=== PATIENT | female | born 2000 | race Caucasian/White ===

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

== ENCOUNTER 2023-11-07 10:58 | Emergency (ER) | payer OTHER ==
[~2023-11-07] VITALS: Ht 165.1 cm; Wt 81.7 kg
[~2023-11-07 10:58] MED LIST changes: +CYMBALTA30 M2 PO
[2023-11-07 11:42] LABS: BASOPHILS ABSOLUTE AUTO 0.02 K/mm3 (0.00-0.23); BASOPHILS PERCENT AUTO 0 % (0-2); EOSINOPHILS ABSOLUTE AUTO 0.17 K/mm3 (0.00-0.68); EOSINOPHILS PERCENT AUTO 2 % (0-6); Hematocrit 41.5 % (33.0-51.0); Hemoglobin 14.1 g/dL (11.5-16.0); IMMATURE GRAN ABSOLUTE AUTO 0.05 K/mm3 (0.00-0.10); IMMATURE GRAN PERCENT AUTO 1 % (0-1); LYMPHOCYTES ABSOLUTE AUTO 1.59 K/mm3 (0.84-5.20); LYMPHOCYTES PERCENT AUTO 19 % (21-46); MONOCYTES ABSOLUTE AUTO 0.49 K/mm3 (0.16-1.47); MONOCYTES PERCENT AUTO 6 % (4-13); Mean Corpuscular HGB 31.5 pg (26.0-34.0); Mean Corpuscular Volume 93 fL (80-100); Mean Platelet Volume 9.5 fL (9.1-12.4); NEUTROPHILS PERCENT AUTO 72 % (41-73); Platelet Count 286 K/mm3 (150-400); RDW Coefficient Variation 13.2 % (11.7-14.2); RDW Standard Deviation 45.3 fL (35.1-46.3); Red Blood Cell Count 4.47 M/mm3 (3.80-5.20); White Blood Cell Count 8.32 K/mm3 (4.00-11.30)
[2023-11-07 12:05] LABS: Albumin, Blood 3.7 g/dL (3.4-5.0); Albumin/Globulin Ratio 1.1 (0.8-1.8); Bilirubin, Total 0.5 mg/dL (0.1-1.0); Bun/Creatinine Ratio 17.5 (12.0-20.0); Calcium, Blood 8.5 mg/dL (8.5-10.1); Creatinine, Blood 0.52 mg/dL (0.40-1.00); Globulin, Blood 3.3 g/dL (2.2-4.0); Potassium, Blood 4.2 mmol/L (3.5-5.5)
[2023-11-07] MEDS ORDERED: levETIRAcetam 4,500 MG in NS 55 ML IV ONE (12:55)
[2023-11-07] MEDS ORDERED: NS 1,000 ML IV ONE (13:29)
[2023-11-07 13:46] LABS: Source, Urine Clean Catch
[2023-11-07 14:20] LABS: Bilirubin, Urine Neg (Neg); Blood, Urine 3+ (Neg); Glucose Qualitative, Urine Neg (Neg); Ketones, Urine Neg (Neg); Leukocyte Esterase, Urine Neg (Neg); Nitrite, Urine Pos (Neg); Protein, Urine Neg (Neg); Urobilinogen, Urine NORM (Normal)
[2023-11-07 14:32] LABS: U Amphetamine Screen Not Detected; U Barbituate Screen Not Detected; U Benzodiazapine Screen Not Detected; U Cocaine Screen Not Detected; U Methadone Screen Not Detected; U Methamphetamine Screen Not Detected; U Opiates Screen Not Detected; U Phencyclidine Screen Not Detected
[2023-11-07 14:33] LABS: U Buprenorphine Screen Not Detected; U Cannabinoids Screen DETECTED; U Oxycodone Screen Not Detected
[2023-11-07 14:37] LABS: Appearance, Urine Hazy (Clear); Bacteria Many /hpf; Color, Urine Pale Yellow (P-Yellow); Squamous Epithelial Cells Rare /hpf (Few); White Blood Cells, Urine 0-2 /hpf (0-5)
[2023-11-07 14:53] VITALS: BP 119/72
[2023-11-07] MEDS ORDERED: LEVE500 PO (15:32)
[2023-11-07] MEDS ORDERED: NITR100CA PO (19:29)
== END 2023-11-07 15:41 | disposition home or self-care (01) ==
LOC: ER 10:58
PROVIDERS: Student in an Organized Health Care Education/Training Program
DX: R56.9 Unspecified convulsions (principal); N39.0 Urinary tract infection, site not specified; F17.200 Nicotine dependence, unspecified, uncomplicated
CPT/HCPCS: 80053; 81001; 84703; 85025; 96365; 99284-25; J1953; J7030

== ENCOUNTER 2023-11-20 09:44 | Emergency (ER) | payer OTHER ==
[~2023-11-20] VITALS: Ht 165.1 cm; Wt 81.7 kg
[~2023-11-20 09:44] MED LIST changes: +LEVE500 PO; +NITR100CA PO
[2023-11-20] MEDS ORDERED: Ketorolac Tromethamine 30mg Vial IV ONE (10:05)
[2023-11-20] MEDS ORDERED: FentaNYL Citrate 50 MCG/ML 2 ML Injection IV ONE (10:05)
[2023-11-20] MEDS ORDERED: Ondansetron HCl 2 MG / ML 2ML Vial IV ONE (10:05)
[2023-11-20] MEDS ORDERED: Valproic Acid Syrup 250MG / 5ML 1 ML PO ONE (10:40)
[2023-11-20] MEDS ORDERED: Valproic Acid 250 MG Cap PO ONE (10:50)
[2023-11-20 11:04] LABS: Valproic Acid 82.3 ug/mL (50.0-100.0)
[2023-11-20 12:35] VITALS: BP 109/49
[2023-11-20] MEDS ORDERED: DIVA250EC PO (12:37)
== END 2023-11-20 13:11 | disposition home or self-care (01) ==
LOC: ER 09:44
PROVIDERS: Emergency Medicine
DX: G40.909 Epilepsy, unspecified, not intractable, without status epilepticus (principal)
CPT/HCPCS: 80164; 82947; 96374; 96375; 99284-25; A9270; J1885; J2405; J3010

== ENCOUNTER → 2023-11-28 | Outpatient (CLI) | payer OTHER ==
[~2023-11-28] MED LIST changes: +DIVA250EC PO
== END | disposition home or self-care (01) ==
LOC: LAB 17:51 → LAB SHORT 17:51
DX: R30.0 Dysuria (principal)
CPT/HCPCS: 87086

== ENCOUNTER 2024-03-27 13:06 | Inpatient (IN) | payer OTHER ==
[~2024-03-27] VITALS: Ht 162.6 cm; Wt 77.7 kg
[2024-03-27] MEDS ORDERED: Ondansetron HCl 2 MG / ML 2ML Vial IV ONE (14:20)
[2024-03-27 15:04] LABS: Hematocrit 50.3 % (33.0-51.0); Hemoglobin 16.9 g/dL (11.5-16.0); Mean Corpuscular HGB 32.9 pg (26.0-34.0); Mean Corpuscular HGB Conc 33.6 g/dL (31.5-36.5); Mean Corpuscular Volume 98 fL (80-100); Mean Platelet Volume 10.5 fL (9.1-12.4); Platelet Count 377 K/mm3 (150-400); RDW Coefficient Variation 13.4 % (11.7-14.2); Red Blood Cell Count 5.13 M/mm3 (3.80-5.20); White Blood Cell Count 42.93 K/mm3 (4.00-11.30)
[2024-03-27] MEDS ORDERED: NS 1,000 ML IV SCH ×2 (15:15→16:55)
[2024-03-27 15:42] LABS: Albumin, Blood 4.5 g/dL (3.4-5.0); Albumin/Globulin Ratio 1.2 (0.8-1.8); Bilirubin, Total 0.6 mg/dL (0.1-1.0); Bun/Creatinine Ratio 12.2 (12.0-20.0); Calcium, Blood 9.2 mg/dL (8.5-10.1); Creatinine, Blood 1.47 mg/dL (0.40-1.00); Globulin, Blood 3.9 g/dL (2.2-4.0); Potassium, Blood 4.1 mmol/L (3.5-5.5); Total Protein, Blood 8.4 g/dL (6.4-8.2)
[2024-03-27] MEDS ORDERED: LORazepam 2 MG/ML 1ML Injection IV ONE (15:45)
[2024-03-27 15:46] LABS: BAND PERCENT MAN 3 % (0-8); BASOPHILS PERCENT MAN 0 % (0-2); EOSINOPHILS PERCENT MAN 0 % (0-6); LYMPHOCYTES ABSOLUTE MAN 1.28 K/mm3 (0.84-5.20); LYMPHOCYTES PERCENT MAN 3 % (21-46); MONOCYTES ABSOLUTE MAN 4.29 K/mm3 (0.16-1.47); MONOCYTES PERCENT MAN 10 % (4-13); NEUTROPHILS ABSOLUTE MAN 37.34 K/mm3 (1.96-9.15); SEG NEUTROPHILS PERCENT MAN 84 % (41-73); TOTAL CELLS COUNTED 100
[2024-03-27] MEDS ORDERED: Lactated Ringer's 1,000 ML IV SCH (16:30)
[2024-03-27] MEDS ORDERED: FLU VACC TS2024-25(6MOS UP)/PF 45 MCG/0.5 ML SYRINGE IM SCH (17:25)
[2024-03-27] MEDS ORDERED: DEPAKOTE ER500 M1 PO (17:37)
[2024-03-27] MEDS ORDERED: Hydroxyzine HCl25 MG PO (17:38)
[2024-03-27 17:49] LABS: Source, Urine Straight Cath
[2024-03-27] MEDS ORDERED: Valproic Acid Syrup 250MG / 5ML 1 ML PO SCH (18:00)
[2024-03-27 18:11] LABS: Appearance, Urine Cloudy (Clear); Bilirubin, Urine Neg (Neg); Blood, Urine 4+ (Neg); Color, Urine Yellow (P-Yellow); Glucose Qualitative, Urine 3+ (Neg); Ketones, Urine Neg (Neg); Leukocyte Esterase, Urine Neg (Neg); Nitrite, Urine Neg (Neg); Protein, Urine 3+ (Neg); Specific Gravity, Urine 1.025 (1.003-1.022); Urobilinogen, Urine NORM (Normal)
[2024-03-27 18:17] LABS: Uric Acid Crystals Few /hpf
[2024-03-27 18:18] LABS: Red Blood Cells, Urine 0-2 /hpf (0-2); Squamous Epithelial Cells Few /hpf (Few); White Blood Cells, Urine 0-2 /hpf (0-5)
[2024-03-27 18:22] LABS: Bacteria Mod /hpf
[2024-03-27 18:26] LABS: U Amphetamine Screen Not Detected; U Barbituate Screen Not Detected; U Benzodiazapine Screen Not Detected; U Buprenorphine Screen Not Detected; U Cannabinoids Screen DETECTED; U Cocaine Screen Not Detected; U Methadone Screen Not Detected; U Methamphetamine Screen Not Detected; U Opiates Screen Not Detected; U Oxycodone Screen Not Detected; U Phencyclidine Screen Not Detected
[2024-03-27 18:35] VITALS: BP 107/76
[2024-03-27 19:45] VITALS: BP 107/61
[2024-03-27] MEDS ORDERED: Ondansetron HCl 2 MG / ML 2ML Vial IV PRN (20:45)
[2024-03-27] MEDS ORDERED: TRIMETHOPRIM IV SCH (21:00)
[2024-03-27] MEDS ORDERED: SULFAMETHOXAZOLE IV SCH (21:00)
[2024-03-27] MEDS ORDERED: DEXTROSE 5% IV SCH (21:00)
[2024-03-27 21:10] LABS: Ethanol (Alcohol), Blood, Med <3 mg/dL
[2024-03-27] MEDS ORDERED: MIRENA1 EAC3 VAG (22:39)
[2024-03-28 00:57] VITALS: BP 91/65
[2024-03-28 03:52] VITALS: BP 109/62
[2024-03-28 04:10] LABS: BASOPHILS ABSOLUTE AUTO 0.06 K/mm3 (0.00-0.23); BASOPHILS PERCENT AUTO 0 % (0-2); Hematocrit 43.8 % (33.0-51.0); Hemoglobin 15.2 g/dL (11.5-16.0); LYMPHOCYTES ABSOLUTE AUTO 1.55 K/mm3 (0.84-5.20); LYMPHOCYTES PERCENT AUTO 5 % (21-46); MONOCYTES ABSOLUTE AUTO 2.28 K/mm3 (0.16-1.47); MONOCYTES PERCENT AUTO 8 % (4-13); Mean Corpuscular HGB Conc 34.7 g/dL (31.5-36.5); Mean Corpuscular Volume 95 fL (80-100); Mean Platelet Volume 10.2 fL (9.1-12.4); Platelet Count 307 K/mm3 (150-400); RDW Coefficient Variation 13.2 % (11.7-14.2); RDW Standard Deviation 46.5 fL (35.1-46.3); Red Blood Cell Count 4.61 M/mm3 (3.80-5.20); White Blood Cell Count 29.09 K/mm3 (4.00-11.30)
[2024-03-28 04:14] LABS: EOSINOPHILS ABSOLUTE AUTO 8.02 K/mm3 (0.00-0.68); EOSINOPHILS PERCENT AUTO 28 % (0-6); IMMATURE GRAN ABSOLUTE AUTO 0.15 K/mm3 (0.00-0.10); IMMATURE GRAN PERCENT AUTO 1 % (0-1); NEUTROPHILS ABSOLUTE AUTO 17.03 K/mm3 (1.96-9.15); NEUTROPHILS PERCENT AUTO 59 % (41-73)
[2024-03-28 04:30] LABS: Albumin, Blood 3.5 g/dL (3.4-5.0); Bilirubin, Total 0.5 mg/dL (0.1-1.0); Bun/Creatinine Ratio 8.1 (12.0-20.0); Calcium, Blood 8.5 mg/dL (8.5-10.1); Creatinine, Blood 3.57 mg/dL (0.40-1.00); Globulin, Blood 3.4 g/dL (2.2-4.0); Magnesium, Blood 3.1 mg/dL (1.6-2.4); Phosphorus, Blood 5.7 mg/dL (2.5-4.9); Potassium, Blood 3.8 mmol/L (3.5-5.5); Total Protein, Blood 6.9 g/dL (6.4-8.2)
[2024-03-28] MEDS ORDERED: NS 1,000 ML IV SCH (06:00)
--- NOTE | 2024-03-28 06:24 | NUR ---
SHIFT SUMMARY ASSUMED CARE OF PT AROUND 1900. PT NONVERBAL AND RESPONDING ONLY TO VERBAL STIMULI. PT MORE ALERT AND RESPONSIVE NOW, SHE IS ABLE TO STATE HER NAME/, AND WHERE SHE IS BUT UNSURE WHY SHE IS HERE. HR IN THE 100'S, SINUS TACH. SHE DENIES CP/PRESSURE, NUMB/TINGLING, SBP IN THE 100'S. O2 >92% ON RA, DENIES SOB. PT HAD ONE EPISODE OF N/V T/O SHIFT. CALL PLACED TO PROVIDER FOR ANTIEMIC, ZOFRAN GIVEN PER EMAR. PT N/V AFTER ORAL INTAKE. SHE HAS DRIED BLOOD ON HER LIPS. SITTER IN ROOM. CALL PLACED TO PROVIDER FOR UPDATE ON PT LABS, FLUIDS ORDERED. PT RESTING IN BED AT THIS TIME. WILL MONITOR PT AND REPORT TO CODING AUDITOR RN.
[2024-03-28 07:22] VITALS: BP 103/63
--- NOTE | 2024-03-28 07:23 | NUR ---
ASSUMPTION NOTE: THIS RN TO ASSUME CARE OF PATIENT. PATIENT IS SLEEPING BUT AROUSABLE. VITAL SIGNS TAKEN AND PATIENT STABLE. PATIENT HAS CALL LIGHT WITHIN REACH AND BED IN LOWEST POSITION.
[2024-03-28] MEDS ORDERED: Enoxaparin 40 MG/0.4 ML SYR SC SCH (09:00)
--- NOTE | 2024-03-28 09:19 | NUR ---
md at bedside: MD BURDEN AT BEDSIDE AND TALKED WITH THE FAMILY PRESENT AND PATIENT. MOM BROUGHT UP HAVING A NEUROLOGY CONSULT AND MD TOLD HER SHE IS ABLE TO REACH OUT BUT THROUGH [facility] ONE WILL BE SENT. PATIENT ENCOURAGED TO GET UP THROUGHOUT THE DAY AND POSSIBLE DISCHARGE WILL BE ON THE [place] TODAY.
[2024-03-28] MEDS ORDERED: Valproic Acid 250 MG Cap PO SCH (10:00)
--- NOTE | 2024-03-28 11:13 | NUR ---
TRANSFER NOTE: PATIENT IS ALERT AND ORIENTED X4 AND COOPERATIVE WITH HER CARE. PATIENT FAMILY IN ROOM AND WENT OVER DISCHARGE WITH FAMILY AND PATIENT. AWARE TO FOLLOW UP WITH PRIMARY CARE PROVIDER WITHIN 1 WEEK AND THEY WILL NEED TO CALL TO SCHEDULE THE APPOINTMENT. MEDICTIONS WERE GIVEN PRIOR TO DISCHARGE. PATIENT LEFT WITH ALL BELONGINGS AND WHEELED OUT WITH FAMILY BY [employer].
== END 2024-03-28 11:20 | disposition home or self-care (01) | DRG 101 ==
LOC: ER 13:06 → ERHOLD 17:21 → PCU 18:31
PROVIDERS: Student in an Organized Health Care Education/Training Program; ADMIT Family Medicine
DX: G40.909 Epilepsy, unspecified, not intractable, without status epilepticus (principal); N17.9 Acute kidney failure, unspecified; R82.71 Bacteriuria; F12.90 Cannabis use, unspecified, uncomplicated; F17.200 Nicotine dependence, unspecified, uncomplicated; F41.1 Generalized anxiety disorder
CPT/HCPCS: 36415; 51701; 70450; 71045; 80053; 80320; 81001; 82550; 82947; 83735; 84100; 85025; 96361; 96374; 96375; 99285-25; A9270; J1650; J2060; J2405; J7030; J7060

== ENCOUNTER 2024-06-01 05:43 | Emergency (ER) | payer OTHER ==
[~2024-06-01] VITALS: Ht 167.6 cm; Wt 61.2 kg
[~2024-06-01 05:43] MED LIST changes: +DEPAKOTE ER500 M1 PO; +Hydroxyzine HCl25 MG PO; +MIRENA1 EAC3 VAG
[2024-06-01 06:16] LABS: BASOPHILS ABSOLUTE AUTO 0.02 K/mm3 (0.00-0.23); BASOPHILS PERCENT AUTO 0 % (0-2); EOSINOPHILS ABSOLUTE AUTO 0.08 K/mm3 (0.00-0.68); EOSINOPHILS PERCENT AUTO 1 % (0-6); Hematocrit 35.1 % (33.0-51.0); Hemoglobin 12.5 g/dL (11.5-16.0); IMMATURE GRAN ABSOLUTE AUTO 0.06 K/mm3 (0.00-0.10); IMMATURE GRAN PERCENT AUTO 1 % (0-1); LYMPHOCYTES ABSOLUTE AUTO 2.21 K/mm3 (0.84-5.20); LYMPHOCYTES PERCENT AUTO 23 % (21-46); MONOCYTES ABSOLUTE AUTO 0.79 K/mm3 (0.16-1.47); MONOCYTES PERCENT AUTO 8 % (4-13); Mean Corpuscular HGB 32.3 pg (26.0-34.0); Mean Corpuscular HGB Conc 35.6 g/dL (31.5-36.5); Mean Corpuscular Volume 91 fL (80-100); Mean Platelet Volume 10.4 fL (9.1-12.4); NEUTROPHILS ABSOLUTE AUTO 6.46 K/mm3 (1.96-9.15); NEUTROPHILS PERCENT AUTO 67 % (41-73); Platelet Count 192 K/mm3 (150-400); RDW Coefficient Variation 13.1 % (11.7-14.2); RDW Standard Deviation 43.1 fL (35.1-46.3); Red Blood Cell Count 3.87 M/mm3 (3.80-5.20); White Blood Cell Count 9.62 K/mm3 (4.00-11.30)
[2024-06-01] MEDS ORDERED: NS 1,000 ML IV SCH (06:25)
[2024-06-01 06:30] LABS: Albumin, Blood 3.6 g/dL (3.4-5.0); Albumin/Globulin Ratio 1.1 (0.8-1.8); Bilirubin, Total 0.3 mg/dL (0.1-1.0); Bun/Creatinine Ratio 33.2 (12.0-20.0); Creatinine, Blood 0.51 mg/dL (0.40-1.00); Globulin, Blood 3.3 g/dL (2.2-4.0); Potassium, Blood 3.9 mmol/L (3.5-5.5); Total Protein, Blood 6.9 g/dL (6.4-8.2)
[2024-06-01 06:40] LABS: Source, Urine Clean Catch
[2024-06-01 06:45] LABS: Appearance, Urine Clear (Clear); Bilirubin, Urine Neg (Neg); Blood, Urine 4+ (Neg); Color, Urine Yellow (P-Yellow); Glucose Qualitative, Urine Neg (Neg); Ketones, Urine 2+ (Neg); Leukocyte Esterase, Urine Neg (Neg); Nitrite, Urine Neg (Neg); Protein, Urine 1+ (Neg); Specific Gravity, Urine 1.015 (1.003-1.022); Urobilinogen, Urine NORM (Normal); pH, Urine 6.5 (5.0-8.0)
[2024-06-01 06:55] LABS: Bacteria Mod /hpf; Squamous Epithelial Cells Many /hpf (Few); White Blood Cells, Urine 0-2 /hpf (0-5)
[2024-06-01 06:57] LABS: U Amphetamine Screen Not Detected; U Barbituate Screen Not Detected; U Benzodiazapine Screen Not Detected; U Buprenorphine Screen Not Detected; U Cannabinoids Screen DETECTED; U Cocaine Screen Not Detected; U Methadone Screen Not Detected; U Methamphetamine Screen Not Detected; U Opiates Screen Not Detected; U Oxycodone Screen Not Detected; U Phencyclidine Screen Not Detected
[2024-06-01 07:30] VITALS: BP 120/61
[2024-06-01 07:39] LABS: Influenza A, PCR NEGATIVE (NEGATIVE); Influenza B, PCR NEGATIVE (NEGATIVE); Resp Syncytial Virus, PCR NEGATIVE (NEGATIVE); SARS-Cov-2 (COVID-19) PCR, MMC NEGATIVE (NEGATIVE)
[2024-06-01] MEDS ORDERED: DEPAKOTE ER250 M2 PO (10:54)
[2024-06-01] MEDS ORDERED: LACO50TA2 PO (16:55)
== END 2024-06-01 08:55 | disposition home or self-care (01) ==
LOC: ER 05:43
PROVIDERS: Emergency Medicine; Student in an Organized Health Care Education/Training Program
DX: R56.9 Unspecified convulsions (principal); F17.200 Nicotine dependence, unspecified, uncomplicated; Z79.899 Other long term (current) drug therapy
CPT/HCPCS: 0241U; 80053; 81001; 83605; 83735; 84703; 85025; 87086; 96360; 99284-25; J7030

== ENCOUNTER 2024-06-01 10:39 | Emergency (ER) | payer OTHER ==
[~2024-06-01] VITALS: Ht 170.2 cm; Wt 79.4 kg
[2024-06-01] MEDS ORDERED: Divalproex Sodium 500 MG TABLET.DR PO ONE (10:45)
[2024-06-01] MEDS ORDERED: Ondansetron HCl 2 MG / ML 2ML Vial IV ONE (10:45)
[2024-06-01] MEDS ORDERED: DEPAKOTE ER250 M2 PO (10:54)
[2024-06-01] MEDS ORDERED: NS IV SCH ×2 (11:05→18:00)
[2024-06-01] MEDS ORDERED: VALPROATE SODIUM IV SCH ×2 (11:05→18:00)
[2024-06-01] MEDS ORDERED: Dexamethasone Sod Phos 10 MG/ML 1ML VIAL IV ONE (11:20)
[2024-06-01] MEDS ORDERED: Mag Sulfate 1 GM/D5% 100ML 100 ML IV ONE (11:20)
[2024-06-01] MEDS ORDERED: Acetaminophen 500 MG Tab PO ONE (11:20)
[2024-06-01] MEDS ORDERED: Metoclopramide HCl 5MG / ML 2ML Vial IV ONE (11:25)
[2024-06-01 11:28] LABS: Valproic Acid 121.9 ug/mL (50.0-100.0)
[2024-06-01] MEDS ORDERED: LORazepam 2 MG/ML 1ML Injection IV ONE ×2 (12:15→12:25)
[2024-06-01] MEDS ORDERED: LORazepam 2 MG/ML 1ML Injection ONE ×2 (12:16→12:18)
[2024-06-01 14:00] VITALS: BP 109/48
[2024-06-01] MEDS ORDERED: Lacosamide 100 MG IV SCH (15:15)
[2024-06-01] MEDS ORDERED: Lacosamide 200 MG/20 ML 20ML Vial IV ONE (15:25)
[2024-06-01] MEDS ORDERED: LACO50TA2 PO (16:55)
== END 2024-06-01 18:00 | disposition home or self-care (01) ==
LOC: ER 10:39
PROVIDERS: Student in an Organized Health Care Education/Training Program
DX: G40.409 Other generalized epilepsy and epileptic syndromes, not intractable, without status epilepticus (principal); Z79.899 Other long term (current) drug therapy; F17.200 Nicotine dependence, unspecified, uncomplicated
CPT/HCPCS: 70450; 80164; 96365; 96368; 96375; 99284-25; A9270; C9254; J1100; J2060; J2405; J2765; J3475

== ENCOUNTER → 2024-06-23 | Outpatient (CLI) | payer OTHER ==
[~2024-06-23] MED LIST changes: +DEPAKOTE ER250 M2 PO; +LACO50TA2 PO
[2024-06-23 17:07] LABS: BASOPHILS ABSOLUTE AUTO 0.02 K/mm3 (0.00-0.23); BASOPHILS PERCENT AUTO 0 % (0-2); EOSINOPHILS PERCENT AUTO 3 % (0-6); Hematocrit 34.4 % (33.0-51.0); IMMATURE GRAN ABSOLUTE AUTO 0.03 K/mm3 (0.00-0.10); IMMATURE GRAN PERCENT AUTO 0 % (0-1); LYMPHOCYTES ABSOLUTE AUTO 2.14 K/mm3 (0.84-5.20); LYMPHOCYTES PERCENT AUTO 27 % (21-46); MONOCYTES ABSOLUTE AUTO 0.69 K/mm3 (0.16-1.47); MONOCYTES PERCENT AUTO 9 % (4-13); Mean Corpuscular HGB 32.5 pg (26.0-34.0); Mean Corpuscular HGB Conc 34.9 g/dL (31.5-36.5); Mean Corpuscular Volume 93 fL (80-100); Mean Platelet Volume 10.2 fL (9.1-12.4); NEUTROPHILS ABSOLUTE AUTO 4.77 K/mm3 (1.96-9.15); NEUTROPHILS PERCENT AUTO 61 % (41-73); Platelet Count 214 K/mm3 (150-400); RDW Standard Deviation 47.9 fL (35.1-46.3); Red Blood Cell Count 3.69 M/mm3 (3.80-5.20); White Blood Cell Count 7.85 K/mm3 (4.00-11.30)
[2024-06-23 17:19] LABS: Albumin, Blood 3.5 g/dL (3.4-5.0); Bilirubin, Total 0.2 mg/dL (0.1-1.0); Bun/Creatinine Ratio 20.3 (12.0-20.0); Calcium, Blood 8.9 mg/dL (8.5-10.1); Creatinine, Blood 0.59 mg/dL (0.40-1.00); Globulin, Blood 3.5 g/dL (2.2-4.0); Potassium, Blood 3.9 mmol/L (3.5-5.5)
== END ==
LOC: LAB SHORT 17:01 → LAB 17:01
PROVIDERS: Emergency Medicine
DX: R56.9 Unspecified convulsions (principal)
CPT/HCPCS: 80053; 83880; 84484; 85025; 85379

== ENCOUNTER 2024-06-27 19:07 | Emergency (ER) | payer OTHER ==
[~2024-06-27] VITALS: Ht 170.2 cm; Wt 90.7 kg
[2024-06-27] MEDS ORDERED: Ketorolac Tromethamine 30mg Vial IV ONE (20:40)
[2024-06-27 20:51] LABS: Valproic Acid 75.3 ug/mL (50.0-100.0)
[2024-06-27 21:15] VITALS: BP 107/61
== END 2024-06-27 21:23 | disposition home or self-care (01) ==
LOC: ER 19:07
PROVIDERS: Emergency Medicine
DX: G40.909 Epilepsy, unspecified, not intractable, without status epilepticus (principal); F17.200 Nicotine dependence, unspecified, uncomplicated; Z79.899 Other long term (current) drug therapy
CPT/HCPCS: 80164; 96374; 99284-25; J1885

== ENCOUNTER → 2024-11-27 | Outpatient (CLI) | payer OTHER | LOC: LAB SHORT 15:38 → LAB 15:38 | PROVIDERS: Advanced Practice Midwife | DX: Z01.419 Encounter for gynecological examination (general) (routine) without abnormal findings (principal) | CPT/HCPCS: G0123 ==

== ENCOUNTER 2025-02-20 14:36 | Emergency (ER) | payer OTHER ==
[~2025-02-20] VITALS: Ht 165.1 cm; Wt 90.7 kg
[2025-02-20 15:07] VITALS: BP 149/102
[2025-02-20 17:48] LABS: Influenza A, PCR Negative (NEGATIVE); Influenza B, PCR Negative (NEGATIVE); Resp Syncytial Virus, PCR Negative (NEGATIVE); SARS-Cov-2 (COVID-19) PCR, MMC Negative (NEGATIVE)
== END 2025-02-20 18:24 | disposition home or self-care (01) ==
LOC: ER 14:36
PROVIDERS: Student in an Organized Health Care Education/Training Program
DX: R05.9 Cough, unspecified (principal); Z79.899 Other long term (current) drug therapy; F17.200 Nicotine dependence, unspecified, uncomplicated
CPT/HCPCS: 71046; 87637; 99283-25